=== PATIENT | female | born 1990 | race Two or more races ===

== ENCOUNTER 2024-04-04 11:37 | Emergency (ER) | payer MEDICAID, OTHER ==
[~2024-04-04] VITALS: Ht 160 cm; Wt 95.5 kg
[2024-04-04 13:35] VITALS: BP 129/61; PULSE 63; RESP 16; TEMP 98.9; O2SAT 98
[2024-04-04] MEDS: KETOROLAC TROMETH 30 MG/ML 1ML VIAL IM ONE (14:18)
[2024-04-04] MEDS: HYDROcodone-ACET 10/325MG TAB PO ONE (14:19)
[2024-04-04] MEDS: TETANUS-DIPTH-ACEL PERTUSSIS 0.5ML SYR Tdap IM ONE (14:20)
[2024-04-04] MEDS ORDERED: CEPH500C PO (15:23)
[2024-04-04] MEDS ORDERED: IBUP-1455 PO (15:23)
[2024-04-04] MEDS ORDERED: BACI-14 EX (15:23)
--- NOTE | 2024-04-04 15:23 | ED.PDOC ---
HPI Comments 17 Chief Complaint: Laceration Time Seen by MD: 11:51 Allergies: Coded Allergies: Bee Venom (Verified Allergy, Unknown, 04/04/24) Home Meds Active Scripts Bacitracin Base (Antibiotic Ointment) 500 Unit/Gm Oin, 500 UNIT EX BID for 7 Days, #5 GRAMS 0 Refills Prov:PRADIP DAWSON FIRMWARE SOFTWARE VERIFICATION ENGINEER 04/04/24 Ibuprofen Micronized (Ibuprofen) 800 Mg Tab, 800 MG PO TIDWM for 10 Days, #30 TAB 0 Refills Prov:PRADIP DAWSON FIRMWARE SOFTWARE VERIFICATION ENGINEER 04/04/24 Cephalexin Monohydrate (Cephalexin) 500 Mg Cap, 1 CAP PO QID for 5 Days, #20 CAP 0 Refills Prov:PRADIP DAWSON FIRMWARE SOFTWARE VERIFICATION ENGINEER 04/04/24 Mode of Arrival: EMS X-Ray, Labs, Meds, VS Vital Signs Date Time Temp Pulse Resp B/P (MAP) Pulse Ox O2 Delivery O2 Flow Rate FiO2 04/04/24 13:35 98.9 63 18 129/61 (83) 98 98.9 04/04/24 13:35 63 16 98 Room Air 04/04/24 11:37 98.7 81 20 157/64 (95) 99 Current Medications Medications (Trade) Dose Ordered Sig/Brock Route Start Time Stop Time Status Last Admin Ketorolac Tromethamine (Toradol Injection) 30 mg ONCE ONCE IM 04/04/24 14:15 04/04/24 14:16 DC 04/04/24 14:18 Acetaminophen/ Hydrocodone Bitart (Surveyor 10/325MG Tab) 1 tab ONCE ONCE PO 04/04/24 14:15 04/04/24 14:16 DC 04/04/24 14:19 Diphtheria/ Tetanus/Acell Pertussis (Boostrix T-Dap) 0.5 ml ONCE ONCE IM 04/04/24 14:15 04/04/24 14:16 DC 04/04/24 14:20 Departure 1 Departure Time of Disposition: 15:20 Impression: Primary Impression: Forearm laceration Qualified Codes: S51.812A - Laceration without foreign body of left forearm, initial encounter Disposition: HOME / SELF CARE / HOMELESS Condition: Stable Additional Instructions: Discharge Note: Continue on your medications. Drink plenty of fluids. Follow up with your primary Dr. Take your prescriptions as ordered. If your condition becomes worse call and follow up with your primary DrHanna for instructions or return to the ER if needed. Have the stitches/tirso removed in 10-14 days. Keep wound clean and dry. Have a wound check in 2 days. Thank you for visiting [facility]. e-Prescriptions Bacitracin Base (Antibiotic Ointment) 500 Unit/Gm Oin 500 UNIT EX BID for 7 Days, #5 GRAMS 0 Refills Prov: PRADIP DAWSON NP 04/04/24 Ibuprofen Micronized (Ibuprofen) 800 Mg Tab 800 MG PO TIDWM for 10 Days, #30 TAB 0 Refills Prov: PRADIP DAWSON NP 04/04/24 Cephalexin Monohydrate (Cephalexin) 500 Mg Cap 1 CAP PO QID for 5 Days, #20 CAP 0 Refills Prov: PRADIP DAWSON NP 04/04/24 Discharged With: Relative PRADIP DAWSON NP Apr 04, 2024 15:23
== END 2024-04-04 16:02 | disposition home or self-care (01) ==
LOC: EDBD 11:37 → ER 11:37
DX: S51.812A Laceration without foreign body of left forearm, initial encounter (principal); Z91.030 Bee allergy status; Z79.1 Long term (current) use of non-steroidal anti-inflammatories (NSAID); Z79.899 Other long term (current) drug therapy; W18.39XA Other fall on same level, initial encounter; Y93.89 Activity, other specified; Y92.89 Other specified places as the place of occurrence of the external cause; Y99.8 Other external cause status
CPT/HCPCS: 12002; 90471; 90715; 96372; 99284; J1885

== ENCOUNTER 2024-04-17 14:04 | Emergency (ER) | payer MEDICAID ==
[~2024-04-17] VITALS: Ht 160 cm; Wt 97.3 kg
[~2024-04-17 14:04] MED LIST: BACI-14 EX; CEPH500C PO; IBUP-1455 PO
--- NOTE | 2024-04-17 15:38 | ED.PDOC ---
History of Present Illness(SKN HPI Comments presents for stitches removal no other complaint Chief Complaint: Wound Check Time Seen by MD: 14:18 History of Present Illness: Nurses Notes, Medications, Allergies Allergies: Coded Allergies: Bee Venom (Verified Allergy, Unknown, 04/04/24) Home Meds Active Scripts Bacitracin Base (Antibiotic Ointment) 500 Unit/Gm Oin, 500 UNIT EX BID for 7 Days, #5 GRAMS 0 Refills Prov:EUNICEMAURA CARDONAInés Nick DIETETICS TEACHER 04/04/24 Ibuprofen Micronized (Ibuprofen) 800 Mg Tab, 800 MG PO TIDWM for 10 Days, #30 TAB 0 Refills Prov:EUNICEPRADIP F DIETETICS TEACHER 04/04/24 Cephalexin Monohydrate (Cephalexin) 500 Mg Cap, 1 CAP PO QID for 5 Days, #20 CAP 0 Refills Prov:PRADIP DAWSON [place] DIETETICS TEACHER 04/04/24 Mode of Arrival: Ambulatory Past Medical History PAST MEDICAL HISTORY: Denies Surgical History: Denies all surgeries POLICE CHIEF DEPUTY History: No Pertinent POLICE CHIEF DEPUTY History All Other Systems: Reviewed and Negative (Per HPI) Physical Exam General Appearance: No Apparent Distress, Normal HEENT: Normal ENT Inspection, Pharynx Normal, TMs Normal Neck: Full Range of Motion, Non-Tender, Normal, Normal Inspection Respiratory: Chest Non-Tender, Lungs Clear, No Accessory Muscle Use, No Respiratory Distress, Normal Breath Sounds Cardiovascular: No Edema, No JVD, No Murmur, No Gallop, Normal Peripheral Pulses, Regular Rate/Rhythm Breast Exam: Deferred Gastrointestinal: No Organomegaly, Non Tender, No Pulsatile Mass, Normal Bowel Sounds, Soft Genitalia: Deferred Pelvic: Deferred Rectal: Deferred Extremities: No calf tenderness, Normal capillary refill, Normal inspection, Normal range of motion, Non-tender, No pedal edema Musculoskeletal : Apperance: Normal Neurologic: Alert, chair finisher II-XII nml as Tested, No Motor Deficits, Normal Affect, Normal Mood, No Sensory Deficits Cerebellar Function: Normal Reflexes: Normal Skin: Dry, Normal Color, Warm Lymphatic: No Adenopathy Was a procedure done? Was a procedure done?: No Differential Diagnosis (INTG) Differential Diagnosis: Other X-Ray, Labs, Meds, VS Vital Signs Date Time Temp Pulse Resp B/P (MAP) Pulse Ox O2 Delivery O2 Flow Rate FiO2 04/17/24 15:49 98.3 86 16 139/80 (99) 98 98.3 04/17/24 15:49 86 16 98 Room Air 04/17/24 14:19 98.3 86 16 139/80 (99) 98 X-Ray, Labs, Meds, VS Comment Removed every other stitch. Advised to return in seven days. Wound healing appropriately however not 100% healed at this time. Return sooner for any signs of infection. Patient verbalized understanding Time of 1ST Reevaluation: 15:47 Reevaluation 1ST: Improved Patient Education/Counseling: Diagnosis, Treatment Family Education/Counseling: Diagnosis, Treatment Departure 1 Departure Time of Disposition: 15:47 Impression: Primary Impression: Forearm laceration Qualified Codes: S51.812S - Laceration without foreign body of left forearm, sequela Additional Impression: Visit for wound check Disposition: 01 HOME / SELF CARE / HOMELESS Condition: Stable Critical Care Note Critical Care Time?: No Stability Stability form required: No Heart Score Heart Score: Heart Score Response (Comments) Value History N/A 0 EKG N/A 0 Age N/A 0 Risk Factors N/A 0 Troponin N/A 0 Total 0 PRADIP DAWSON NP Apr 17, 2024 15:38
[2024-04-17 15:49] VITALS: BP 139/80; PULSE 86; RESP 16; TEMP 98.3; O2SAT 98
== END 2024-04-17 15:56 | disposition home or self-care (01) ==
LOC: ER 14:10
DX: S51.812D Laceration without foreign body of left forearm, subsequent encounter (principal); Z48.02 Encounter for removal of sutures; Z79.899 Other long term (current) drug therapy; Z91.030 Bee allergy status; X58.XXXD Exposure to other specified factors, subsequent encounter